=== PATIENT | female | born 1995 | race Caucasian/White ===

== ENCOUNTER 2021-10-07 23:55 | Emergency (ER) | payer OTHER ==
[~2021-10-07] VITALS: Ht 175.3 cm; Wt 146.7 kg
== END 2021-10-08 02:10 | disposition home or self-care (01) ==
LOC: ED 23:55
DX: F15.10 Other stimulant abuse, uncomplicated (principal); J45.909 Unspecified asthma, uncomplicated
CPT/HCPCS: 36415; 80053; 81001; 84702; 84703; 85025; 86900; 86901; 87502; 99284; G0480; U0003

== ENCOUNTER 2021-10-12 22:31 | Emergency (ER) | payer MEDICAID ==
[~2021-10-12] VITALS: Ht 175.3 cm; Wt 151.1 kg
--- OUTSIDE RECORDS SUMMARY | 2021-10-12 22:38 | XMS ---
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 Remigio VISIT COUNT (12 MO.) [address] [place] [address] Almaz Moody [address] [place] [address] TOTAL 9 NOTE: Visits indicate total known visits. ED/UCC VISIT TRACKING (12 MO.) 10/12/2021 22:31 [facility] TYPE: Emergency COMPLAINT: - HEADACHE 10/07/2021 23:[address] 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 DIAGNOSES: - Procedure and treatment not carried out due to patient leaving prior to being seen by health care provider - covid R/O abd pain 11/27[facility]2020 [facility] [facility] [facility] DIAGNOSES: - Contact with and (suspected) exposure to covid-19 - exposure - Labs Only [facility] [place] [facility] DIAG[facility]ES: - Arm Pain - Right Arm Pain - Strain of unspecified muscle, fascia and tendon at shoulder and upper arm level, right arm, initial encounter [facility]2020 [facility] [place] [facility] DIAGNOSES: - left foot swollen - Foot Pain - Effusion, left ankle - Foot Swelling - Pain in left ankle and joints of left foot 10[facility]12[facility]2020 22[facility] [place] [facility] DIAGNOSES: - Effusion, left ankle - left foot swelling - Pain in left ankle and joints of left foot - Foot Swelling - Wound Re-evaluation INPATIENT VISIT TRACKING (12 MO.) No inpatient visits to display in this time frame [email or web address]
[2021-10-13] MEDS ORDERED: CLEOCIN HCL300 MG PO (01:13)
== END 2021-10-13 01:27 | disposition home or self-care (01) ==
LOC: ED 22:31
DX: R51.9 Headache, unspecified (principal); K02.9 Dental caries, unspecified; J45.909 Unspecified asthma, uncomplicated; I10 Essential (primary) hypertension
CPT/HCPCS: 96361; 96374; 96375; 99283-25; J1200; J1885; J2765; J7030